=== PATIENT | male | born 2005 | race Caucasian/White ===

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

== ENCOUNTER → 2024-05-23 | Outpatient (CLI) | payer OTHER | LOC: M WUC 13:43 | PROVIDERS: ATTEND Registered Nurse | DX: R09.1 Pleurisy (principal) ==